=== PATIENT | female | born 1955 | race Caucasian/White ===

== ENCOUNTER → 2018-05-13 | Outpatient (CLI) | payer MEDICARE, MEDICAID ==
[~2018-05-13] MED LIST: ARICEPT5 MG PO; ASPIRIN81 M1 PO; FISH OIL500 MG PO; MULTIVITAMIN FO1 CAP PO; NAMENDA1 TAB PO; NAPROSYN500 MG PO; NORCO 325 MG-51 TAB PO
== END | disposition home or self-care (01) ==
LOC: CARD 11:31
DX: Z79.899 Other long term (current) drug therapy (principal); R00.1 Bradycardia, unspecified

== ENCOUNTER → 2018-09-04 | Outpatient (CLI) | payer MEDICARE, MEDICAID | END | disposition home or self-care (01) | LOC: MAMMO 02:37 | DX: Z12.31 Encounter for screening mammogram for malignant neoplasm of breast (principal); R10.2 Pelvic and perineal pain ==

== ENCOUNTER → 2019-03-27 | Day surgery (SDC) | payer MEDICARE, MEDICAID ==
[~2019-03-27] VITALS: Ht 165.1 cm; Wt 55.8 kg
[~2019-03-27] MED LIST changes: +ARICEPT10 M1 PO; -ARICEPT5 MG PO; +AUGMENTIN 875875 MG PO; +HIPREX1 GM PO; +LEVAQUIN750 M1 PO; +MILK OF MA400 MG/5 M PO; +NORVASC10 MG PO; +OXYBUTYNIN CHLO10 MG PO; +SEROQUEL25 MG PO; +ZOCOR10 MG PO
--- NOTE | ~2019-03-27 | O ---
[place], [place] OPERATIVE NOTE NAME: SHERLY WISE UNIT #: [id number] ROOM: DOCTOR: GILMAR RIOS MD BIRTHDATE: [birth year] DOS: 03/27/2019 HISTORY OF PRESENT ILLNESS: This is a 63-year-old patient who has advanced Alzheimer's dementia, neurogenic dysphagia, not eating, not drinking. PROCEDURE: Today's procedure part of investigation is panendoscopy plus PEG tube placement. PREMEDICATION: Propofol. SCOPE: Olympus forward-viewing gastroscope Q10 video. REPORT: After putting the patient in left lateral position and application of lubricant to the scope, scope was introduced. Thereafter, under direct visualization, I advanced through the length of esophagus into gastric pouch into duodenal bulb. Evidence of gastritis was noticed. Patency of gastric outlet assured. Anterior abdominal wall aseptically was prepped, 2 mL of Xylocaine. Subxiphoid leaning to the left was chosen as the best transillumination site. Trocar was introduced. Gastrostomy wire was advanced into it, grabbed, orally pulled. Gastrostomy tube, 20-[place] was anchored to it, orally pulled, recovered from the surface of the abdomen. Anchors placed, patency checked, tolerated the procedure well. IMPRESSION: Gastritis, neurogenic dysphagia, status post EGD, status post PEG tube. PLAN AND DISCUSSION: [employer] HN half a can q.i.d. pleasure food as tolerated, water 200 mL q.6 hours per PEG and clinical reassessment. GILMAR RIOS MD CM:OPRECORD:OPERATIVE NOTE [id number] GILMAR RIOS MD 03/27/192031 interface
[2019-03-27 14:17] VITALS: BP 148/86
[2019-03-27 16:13] VITALS: BP 141/89
[2019-03-27 16:28] VITALS: BP 142/91
[2019-03-27 16:43] VITALS: BP 138/97
[2019-03-27 17:04] VITALS: BP 137/75
[2019-03-27 17:16] VITALS: BP 140/75
== END | disposition home or self-care (01) ==
LOC: SDC 03-26 08:45
DX: K29.70 Gastritis, unspecified, without bleeding (principal); K44.9 Diaphragmatic hernia without obstruction or gangrene; R13.19 Other dysphagia; G30.8 Other Alzheimer's disease; F02.80 Dementia in other diseases classified elsewhere, unspecified severity, without behavioral disturbance, psychotic disturbance, mood disturbance, and anxiety; I10 Essential (primary) hypertension; F41.9 Anxiety disorder, unspecified; F32.9 Major depressive disorder, single episode, unspecified; E78.5 Hyperlipidemia, unspecified; Z79.899 Other long term (current) drug therapy; Z98.890 Other specified postprocedural states; Z79.82 Long term (current) use of aspirin

== ENCOUNTER 2019-12-21 13:59 | Emergency (ER) | payer MEDICARE, OTHER ==
[~2019-12-21] VITALS: Ht 165.1 cm; Wt 56.7 kg
== END 2019-12-21 15:07 | disposition home or self-care (01) ==
LOC: ED 13:59
DX: Z43.1 Encounter for attention to gastrostomy (principal); I10 Essential (primary) hypertension; Z79.899 Other long term (current) drug therapy

== ENCOUNTER 2020-07-21 16:18 | Inpatient (IN) | payer MEDICARE, OTHER ==
[~2020-07-21] VITALS: Ht 162.6 cm; Wt 64.0 kg
[2020-07-21 17:12] VITALS: BP 112/60
[2020-07-21 17:56] LABS: BASO % 0.3 % (0.0-1.0); EOS % 0.2 % (1.0-4.0); HEMATOCRIT 39.3 % (37.0-47.0); LYMPH # 1.2 10*3/uL (1.3-4.4); LYMPH % 9.3 % (27.0-41.0); MEAN CORPUSCULAR HGB 32.4 pg (27.0-31.0); MEAN CORPUSCULAR HGB CONC 32.1 g/dl (33.0-37.0); MEAN PLATELET VOLUME 10.6 fl (9.6-12.3); MONO # 0.7 10*3/uL (0.1-1.0); MONO % 5.5 % (3.0-9.0); NEUT # 10.4 10*3/uL (2.3-7.9); PLATELET COUNT AUTOMATED 182 10*3/uL (130-400); RED BLOOD COUNT 3.89 10*6/uL (4.10-5.10); RED CELL DISTRI WIDTH 11.9 % (0-14.5); WHITE BLOOD COUNT 12.4 10*3/uL (4.8-10.8)
[2020-07-21 18:07] LABS: ACT PARTIAL THROMBO TIME 27.1 SECONDS (20.0-32.1); INTERNATIONAL NORM RATIO 0.9 (2.0-3.5)
[2020-07-21 18:12] LABS: ALBUMIN 2.8 gm/dl (3.1-4.5); ALKALINE PHOSPHATASE 86 U/L (45-117); BUN 14 mg/dl (7-24); CHLORIDE 106 mmol/L (98-107); CREATININE 0.46 mg/dL (0.55-1.02); POTASSIUM 3.6 mmol/L (3.5-5.1); SGOT/AST 33 IU/L (3-35); SGPT/ALT 26 U/L (12-78); SODIUM 141 mmol/L (136-145); TOTAL PROTEIN 7.6 gm/dL (6.4-8.2)
[2020-07-21 18:14] LABS: TROPONIN I < 0.015 ng/ml (<0.045)
[2020-07-21 18:59] VITALS: BP 119/67
[2020-07-21] MEDS ORDERED: Ipratropium Brom3 ML INH (20:50)
[2020-07-21] MEDS ORDERED: AUGMENTIN 875875 MG PO (20:50)
[2020-07-21] MEDS ORDERED: VITAMIN D350 MCG PO (20:52)
[2020-07-21] MEDS ORDERED: Bactroban Oint22 GM T (20:53)
[2020-07-21] MEDS ORDERED: MEMANTINE HCL10 MG PEG (20:54)
[2020-07-21] MEDS ORDERED: IMODIUM A-D2 M2 PO (20:55)
[2020-07-21] MEDS ORDERED: ZOFRAN8 M1 PO (20:56)
[2020-07-21] MEDS ORDERED: Peridex 473 ML473 ML PO (20:57)
[2020-07-21] MEDS ORDERED: TYLENOL325 M1 PO (20:58)
[2020-07-21] MEDS ORDERED: FAMOTIDINE20 M1 PO (20:58)
[2020-07-21 21:00] VITALS: BP 119/67
[2020-07-22 00:45] VITALS: BP 130/67
[2020-07-22 08:00] VITALS: BP 121/64
[2020-07-22 12:00] VITALS: BP 129/69
[2020-07-22 12:39] LABS: BILIRUBIN NEGATIVE; BLOOD NEGATIVE (NEGATIVE); CLARITY CLEAR (CLEAR); COLOR YELLOW (YELLOW); GLUCOSE NEGATIVE; KETONE 1+; NITRITE NEGATIVE (NEGATIVE); UROBILINOGEN 0.2 E.U./dl (0.0-1.0)
[2020-07-22 12:40] LABS: BACTERIA TRACE; EPITHELIAL CELLS 0-2; LEUKO ESTERASE 1+ (NEGATIVE); RBC 0-2 rbc/hpf (0-2); WBC 31-40 wbc/hpf (0-5)
[2020-07-22 16:00] VITALS: BP 138/78
[2020-07-22 20:00] VITALS: BP 124/73
[2020-07-23] VITALS: BP 126/72
[2020-07-23 06:50] LABS: BASO % 0.5 % (0.0-1.0); EOS # 0.1 10*3/uL (0.0-0.4); EOS % 1.1 % (1.0-4.0); HEMATOCRIT 36.6 % (37.0-47.0); LYMPH % 11.9 % (27.0-41.0); MEAN CELL VOLUME 101.9 fl (81.0-99.0); MEAN CORPUSCULAR HGB 32.9 pg (27.0-31.0); MEAN CORPUSCULAR HGB CONC 32.2 g/dl (33.0-37.0); MEAN PLATELET VOLUME 10.4 fl (9.6-12.3); MONO # 0.6 10*3/uL (0.1-1.0); MONO % 6.9 % (3.0-9.0); NEUT # 6.4 10*3/uL (2.3-7.9); NEUT % 78.7 % (47.0-73.0); PLATELET COUNT AUTOMATED 168 10*3/uL (130-400); RED BLOOD COUNT 3.59 10*6/uL (4.10-5.10); WHITE BLOOD COUNT 8.1 10*3/uL (4.8-10.8)
[2020-07-23 07:19] LABS: BUN 11 mg/dl (7-24); CHLORIDE 108 mmol/L (98-107); CREATININE 0.26 mg/dL (0.55-1.02); POTASSIUM 3.3 mmol/L (3.5-5.1); SODIUM 140 mmol/L (136-145)
[2020-07-23 08:00] VITALS: BP 146/69
[2020-07-23 12:00] VITALS: BP 132/69
[2020-07-23 16:00] VITALS: BP 130/77
[2020-07-23 20:00] VITALS: BP 113/57
[2020-07-24] VITALS: BP 131/85
[2020-07-24 08:00] VITALS: BP 137/75
[2020-07-24 12:00] VITALS: BP 126/74
[2020-07-24 16:00] VITALS: BP 123/68
[2020-07-24 20:00] VITALS: BP 133/75
[2020-07-25] VITALS: BP 135/82
[2020-07-25 06:10] LABS: BUN 9 mg/dl (7-24); CREATININE 0.32 mg/dL (0.55-1.02)
[2020-07-25 08:00] VITALS: BP 136/79
[2020-07-25] MEDS ORDERED: SEPTDS PO (08:51)
== END 2020-07-25 11:05 | disposition other institution (70) | DRG 871 ==
LOC: ED 16:18 → 4E 18:29 → EDHOLD 18:29 → 4E 18:40
PROVIDERS: Emergency Medicine; ADMIT Internal Medicine; ATTEND Internal Medicine
DX: A41.9 Sepsis, unspecified organism (principal); J69.0 Pneumonitis due to inhalation of food and vomit; E44.1 Mild protein-calorie malnutrition; R62.7 Adult failure to thrive; G30.0 Alzheimer's disease with early onset; F02.80 Dementia in other diseases classified elsewhere, unspecified severity, without behavioral disturbance, psychotic disturbance, mood disturbance, and anxiety; I10 Essential (primary) hypertension; E78.2 Mixed hyperlipidemia; Z20.828 Contact with and (suspected) exposure to other viral communicable diseases; K21.0 Gastro-esophageal reflux disease with esophagitis; Z66 Do not resuscitate; Z51.5 Encounter for palliative care; Z68.24 Body mass index [BMI] 24.0-24.9, adult

== ENCOUNTER 2021-07-26 02:14 | Inpatient (IN) | payer MEDICARE, OTHER ==
[2021-07-26] VITALS (7 sets, daily range): BP systolic 107–134; BP diastolic 58–74
[~2021-07-26] VITALS: Ht 167.6 cm; Wt 67.0 kg
[~2021-07-26 02:14] MED LIST changes: +Bactroban Oint22 GM T; +FAMOTIDINE20 M1 PO; +IMODIUM A-D2 M2 PO; +Ipratropium Brom3 ML INH; +MEMANTINE HCL10 MG PEG; -OXYBUTYNIN CHLO10 MG PO; +OXYBUTYNIN10 MG PO; +Peridex 473 ML473 ML PO; +SEPTDS PO; +TYLENOL325 M1 PO; +VITAMIN D350 MCG PO; +ZOFRAN8 M1 PO
[2021-07-26 02:26] LABS: BASO % 0.2 % (0.0-1.0); EOS % 0.1 % (1.0-4.0); HEMATOCRIT 44.4 % (37.0-47.0); LYMPH # 0.8 10*3/uL (1.3-4.4); LYMPH % 5.2 % (27.0-41.0); MEAN CELL VOLUME 100.7 fl (81.0-99.0); MEAN CORPUSCULAR HGB 33.1 pg (27.0-31.0); MEAN CORPUSCULAR HGB CONC 32.9 g/dl (33.0-37.0); MEAN PLATELET VOLUME 10.6 fl (9.6-12.3); MONO # 0.6 10*3/uL (0.1-1.0); NEUT # 13.5 10*3/uL (2.3-7.9); PLATELET COUNT AUTOMATED 249 10*3/uL (130-400); RED BLOOD COUNT 4.41 10*6/uL (4.10-5.10); RED CELL DISTRI WIDTH 11.7 % (0-14.5)
[2021-07-26 03:02] LABS: ALBUMIN 3.6 gm/dl (3.1-4.5); ALKALINE PHOSPHATASE 83 U/L (45-117); BUN 25 mg/dl (7-24); CHLORIDE 107 mmol/L (98-107); CREATININE 0.49 mg/dL (0.55-1.02); POTASSIUM 3.8 mmol/L (3.5-5.1); SGOT/AST 18 IU/L (3-35); SGPT/ALT 26 U/L (12-78); SODIUM 140 mmol/L (136-145); TOTAL PROTEIN 7.4 gm/dL (6.4-8.2)
[2021-07-26 04:06] LABS: BILIRUBIN Negative (Negative); BLOOD Negative (Negative); CLARITY Turbid (Clear); COLOR Yellow (Yellow); GLUCOSE Negative (Negative); KETONE Trace (Negative); LEUKO ESTERASE 2+ (Negative); NITRITE Negative (Negative); SPECIFIC GRAVITY 1.015 (1.001-1.030)
[2021-07-26 04:33] LABS: PH 8.5 (4.5-8.0)
[2021-07-26 04:34] LABS: BACTERIA 4+; TRIP PHOS CRYSTALS 2+; WBC 16-20 wbc/hpf (0-5)
[2021-07-27 01:43] VITALS: BP 139/67
[2021-07-27 06:24] LABS: BASO % 0.4 % (0.0-1.0); EOS # 0.1 10*3/uL (0.0-0.4); HEMATOCRIT 40.3 % (37.0-47.0); LYMPH # 1.3 10*3/uL (1.3-4.4); LYMPH % 17.8 % (27.0-41.0); MEAN CELL VOLUME 102.5 fl (81.0-99.0); MEAN CORPUSCULAR HGB 33.1 pg (27.0-31.0); MEAN CORPUSCULAR HGB CONC 32.3 g/dl (33.0-37.0); MEAN PLATELET VOLUME 10.6 fl (9.6-12.3); MONO # 0.6 10*3/uL (0.1-1.0); MONO % 8.1 % (3.0-9.0); NEUT # 5.1 10*3/uL (2.3-7.9); NEUT % 72.3 % (47.0-73.0); PLATELET COUNT AUTOMATED 178 10*3/uL (130-400); RED BLOOD COUNT 3.93 10*6/uL (4.10-5.10); RED CELL DISTRI WIDTH 11.6 % (0-14.5); WHITE BLOOD COUNT 7.1 10*3/uL (4.8-10.8)
[2021-07-27 08:53] VITALS: BP 115/67
[2021-07-27 11:43] VITALS: BP 123/66
[2021-07-27 20:00] VITALS: BP 123/69
[2021-07-28] VITALS: BP 132/72
[2021-07-28 07:31] LABS: BASO % 0.3 % (0.0-1.0); EOS % 0.4 % (1.0-4.0); HEMATOCRIT 42.1 % (37.0-47.0); LYMPH # 1.1 10*3/uL (1.3-4.4); LYMPH % 11.4 % (27.0-41.0); MEAN CELL VOLUME 101.4 fl (81.0-99.0); MEAN CORPUSCULAR HGB 33.3 pg (27.0-31.0); MEAN CORPUSCULAR HGB CONC 32.8 g/dl (33.0-37.0); MEAN PLATELET VOLUME 10.7 fl (9.6-12.3); MONO # 0.6 10*3/uL (0.1-1.0); MONO % 6.9 % (3.0-9.0); NEUT # 7.4 10*3/uL (2.3-7.9); NEUT % 80.6 % (47.0-73.0); PLATELET COUNT AUTOMATED 211 10*3/uL (130-400); RED BLOOD COUNT 4.15 10*6/uL (4.10-5.10); RED CELL DISTRI WIDTH 11.7 % (0-14.5); WHITE BLOOD COUNT 9.2 10*3/uL (4.8-10.8)
[2021-07-28 08:00] VITALS: BP 123/67
[2021-07-28] MEDS ORDERED: CIPRO500 MG PO (10:30)
== END 2021-07-28 11:22 | DRG 178 ==
LOC: ED 02:14 → EDHOLD 05:21 → 4E 05:21 → EDHOLD 09:46 → 4E 07-27 16:43
PROVIDERS: Internal Medicine; ADMIT Internal Medicine; ATTEND Internal Medicine
DX: J69.0 Pneumonitis due to inhalation of food and vomit (principal); N17.9 Acute kidney failure, unspecified; N30.00 Acute cystitis without hematuria; F02.81 Dementia in other diseases classified elsewhere, unspecified severity, with behavioral disturbance; B96.89 Other specified bacterial agents as the cause of diseases classified elsewhere; Z20.822 Contact with and (suspected) exposure to COVID-19; R13.10 Dysphagia, unspecified; G30.1 Alzheimer's disease with late onset; K21.00 Gastro-esophageal reflux disease with esophagitis, without bleeding; I10 Essential (primary) hypertension

== ENCOUNTER 2021-08-10 04:28 | Observation (INO) | payer MEDICARE, OTHER ==
[~2021-08-10] VITALS: Ht 167.6 cm; Wt 59.7 kg
[~2021-08-10 04:28] MED LIST changes: +CIPRO500 MG PO
[2021-08-10 04:29] VITALS: BP 128/79
[2021-08-10 06:05] LABS: BASO % 0.2 % (0.0-1.0); HEMATOCRIT 46.9 % (37.0-47.0); LYMPH # 0.5 10*3/uL (1.3-4.4); MEAN CELL VOLUME 101.1 fl (81.0-99.0); MEAN CORPUSCULAR HGB 33.2 pg (27.0-31.0); MEAN CORPUSCULAR HGB CONC 32.8 g/dl (33.0-37.0); MEAN PLATELET VOLUME 10.6 fl (9.6-12.3); MONO # 0.3 10*3/uL (0.1-1.0); MONO % 4.1 % (3.0-9.0); NEUT # 7.2 10*3/uL (2.3-7.9); NEUT % 88.1 % (47.0-73.0); PLATELET COUNT AUTOMATED 179 10*3/uL (130-400); RED BLOOD COUNT 4.64 10*6/uL (4.10-5.10); RED CELL DISTRI WIDTH 11.7 % (0-14.5); WHITE BLOOD COUNT 8.1 10*3/uL (4.8-10.8)
[2021-08-10 06:16] LABS: ALBUMIN 3.5 gm/dl (3.1-4.5); ALKALINE PHOSPHATASE 90 U/L (45-117); BUN 17 mg/dl (7-24); CHLORIDE 105 mmol/L (98-107); CREATININE 0.55 mg/dL (0.55-1.02); POTASSIUM 4.1 mmol/L (3.5-5.1); SGOT/AST 19 IU/L (3-35); SGPT/ALT 23 U/L (12-78); SODIUM 138 mmol/L (136-145); TOTAL PROTEIN 8.5 gm/dL (6.4-8.2)
[2021-08-10 15:38] VITALS: BP 124/59
[2021-08-10 16:03] LABS: HEMATOCRIT 41.9 % (37.0-47.0)
[2021-08-10 20:11] VITALS: BP 119/63
[2021-08-10 22:43] VITALS: BP 126/65
[2021-08-11] VITALS: BP 117/81
[2021-08-11 06:48] LABS: BASO % 0.3 % (0.0-1.0); EOS % 0.5 % (1.0-4.0); HEMATOCRIT 40.2 % (37.0-47.0); LYMPH # 1.3 10*3/uL (1.3-4.4); LYMPH % 17.7 % (27.0-41.0); MEAN CORPUSCULAR HGB 33.2 pg (27.0-31.0); MEAN CORPUSCULAR HGB CONC 31.6 g/dl (33.0-37.0); MEAN PLATELET VOLUME 10.4 fl (9.6-12.3); MONO # 0.5 10*3/uL (0.1-1.0); MONO % 6.4 % (3.0-9.0); NEUT # 5.5 10*3/uL (2.3-7.9); NEUT % 74.8 % (47.0-73.0); PLATELET COUNT AUTOMATED 143 10*3/uL (130-400); RED BLOOD COUNT 3.82 10*6/uL (4.10-5.10); RED CELL DISTRI WIDTH 11.8 % (0-14.5); WHITE BLOOD COUNT 7.3 10*3/uL (4.8-10.8)
[2021-08-11 07:23] LABS: BUN 14 mg/dl (7-24); CHLORIDE 110 mmol/L (98-107); POTASSIUM 3.8 mmol/L (3.5-5.1); SODIUM 142 mmol/L (136-145)
[2021-08-11 07:28] LABS: MEAN CELL VOLUME 105.2 fl (81.0-99.0)
[2021-08-11 08:00] VITALS: BP 132/76
[2021-08-11] MEDS ORDERED: Carafate1 GM PO (09:21)
[2021-08-11] MEDS ORDERED: PROTONIX40 MG PO (09:21)
[2021-08-11 11:00] VITALS: BP 138/66
[2021-08-11 12:48] VITALS: BP 142/70
[2021-08-11 13:03] VITALS: BP 133/68
[2021-08-11 13:18] VITALS: BP 115/63
== END 2021-08-11 17:17 ==
LOC: ED 04:28 → EDHOLD 06:44 → 4E 06:44 → EDHOLD 06:44 → 4E 16:35
PROVIDERS: Emergency Medicine; Internal Medicine Gastroenterology; ADMIT Internal Medicine; ATTEND Internal Medicine
DX: K29.71 Gastritis, unspecified, with bleeding (principal); K20.91 Esophagitis, unspecified with bleeding; G30.0 Alzheimer's disease with early onset; F02.81 Dementia in other diseases classified elsewhere, unspecified severity, with behavioral disturbance; D75.89 Other specified diseases of blood and blood-forming organs; R62.7 Adult failure to thrive; Z20.822 Contact with and (suspected) exposure to COVID-19; E78.2 Mixed hyperlipidemia; I10 Essential (primary) hypertension; R73.9 Hyperglycemia, unspecified; J69.0 Pneumonitis due to inhalation of food and vomit; K92.0 Hematemesis; Z79.01 Long term (current) use of anticoagulants; Z79.899 Other long term (current) drug therapy; Z88.1 Allergy status to other antibiotic agents